=== PATIENT | female | born 1975 ===

== ENCOUNTER 2025-04-23 15:10 | Day surgery (SDC) | payer BC, SELFPAY ==
[2025-04-23] VITALS (15 sets, daily range): BP systolic 113–153; BP diastolic 64–91; BMI 29.9
[2025-04-23 10:48] LABS: Hematocrit 41.0 % (37.0-47.0); Hemoglobin 13.5 g/dL (12.0-16.0); Mean Corp Hgb Conc. 32.9 g/dL (33.0-37.0); Mean Corpuscular Volume 84.4 fL (81.0-99.0); Nucleated Red Blood Cells % 0 %; Platelet Count 189 10^3/uL (130-400); Red Cell Dist. Width 12.2 % (11.5-14.5)
[2025-04-23 11:04] LABS: ALT (SGPT) 25 U/L (0-35); AST (SGOT) 27 U/L (14-36); Albumin 5.0 g/dl (3.5-5.0); Alkaline Phosphatase 79 U/L (38-126); Blood Urea Nitrogen 16 mg/dl (7-17); Calcium 9.7 mg/dl (8.4-10.2); Carbon Dioxide 28 mmol/L (22-30); Chloride 104 mmol/L (98-107); Glucose 114 mg/dl (70-99); Lipase 249 U/L (23-300); Potassium 4.6 mmol/L (3.5-5.1); Sodium 140 mmol/L (135-145); Total Protein 8.1 g/dl (6.3-8.2); eGFR > 60.00
--- NOTE | 2025-04-23 12:31 | ED.GENMED ---
History of Present Illness
General
Chief Complaint: Abdominal Pain
Source: patient
Exam Limitations: none
Time Seen by Provider: 04/23/25 12:06
Nursing documentation reviewed up to this point in time: agreed with
History of Present Illness
History of Present Illness:
see MDM
Past History
Past History
ED Past Medical History: Hypothyroidism
Social History
Tobacco: Non-smoker
Alcohol: None
Drug: None
Personal:
Living: with family
Review of Systems
Review of Systems
Allergies reviewed?: Yes
All Other Systems: Not applicable
Phy Exam
Physical Exam
Physical Exam:
GENERAL: Alert , in no apparent distress
EYE: pupils equal and reactive
NECK: Supple
ENT: o/p clr, mmm.
CARDIAC: Regular rate and rhythm .
LUNGS: Clear breath sounds bilaterally, no acute respiratory distress, no wheezes/rales/rhonchi
ABDOMEN: Soft, without focal tenderness, no r/g, no cvat, normal bowel sounds
NEUROLOGICAL: Alert and oriented, no focal neuro deficits
SKIN: Warm and dry, skin intact.
MUSCULOSKELETAL: No edema, well perfused. neg parisa's sign
PSYCH: Normal and appropriate interaction.
Course
Orders/Labs/Results
Orders:
Orders
04/23/25 10:34
Complete Blood Count/With Diff Urgent
Comprehensive Metabolic Panel Urgent
Lipase Urgent
04/23/25 12:28
Electrocardiogram (*1) Urgent
Reason for Study: Abdominal Pain
CT Abd/Pel (IV only)-DH only Urgent
Comment:
Reason For Exam: diffuse abd pain
EKG- Treatment ONCE
Famotidine [Pepcid] 20 mg IV NOW STA
04/23/25 12:43
Troponin I Urgent
04/23/25 13:42
Piperacillin/Tazo 3.375 Gram [Zosyn] 3.375 gram in 50 ml IV NOW
04/23/25 14:11
Fentanyl Citrate/Pf [Sublimaze] 100 mcg .ROUTE .STK-MED ONE
Lidocaine HCl/Pf [Xylocaine-Mpf 1% Vial] 50 mg .ROUTE .STK-MED ONE
Midazolam HCl [Versed] 2 mg .ROUTE .STK-MED ONE
Propofol [Diprivan] 20 ml .ROUTE .STK-MED
Rocuronium Dahlgren [Rocuronium] 50 mg .ROUTE .STK-MED ONE
04/23/25 14:17
Bupivacaine 0.25%Pf/Epinephrin [Sensorcaine-Epi 0.25%-0.0005] 30 ml .ROUTE .STK-MED ONE
04/23/25 14:27
Fentanyl Citrate/Pf [Sublimaze] 25 mcg IV [id number] PRN
HYDROmorphone [Dilaudid] 0.25 mg IV PACU-Q5MPRN PRN
HYDROmorphone [Dilaudid] 0.5 mg IV PACU-Q5MPRN PRN
Ondansetron Injectable [Zofran] 4 mg IV PACU-ONCEPRN PRN
Prochlorperazine [Compazine] 5 mg IV PACU-ONCEPRN PRN
Notify MD As Directed
Notify physician if: for SDS patients with known or suspected sleep obstructive sleep apnea, monitor in the
PACU.
Notify MD for any apneic/desaturation episodes
O2 Therapy [RESP] Urgent
Titrate/Wean O2 to maintain O2 sat greater than (%): 92
Special Instructions: -Provide supplemental oxygen to achieve O2 sat of 92% or greater.
-After 15 min, may wean O2 and discontinue if patient is able to maintain O2 sat of 92%
or greater during recovery period.
If patient is a discharge home, without oxygen therapy, notify anestheiologist if
unable to maintain O2 SAT of 92% or greater on room air for MD clearance.
04/23/25 14:30
Normosol (Mult Electrolytes) [Normosol-R/Plasmalyte-A] 1,000 ml IV PER PROTOCOL
04/23/25 14:45
Normosol (Mult Electrolytes) [Normosol-R/Plasmalyte-A] 1,000 ml IV PER PROTOCOL
04/23/25 15:07
Dexamethasone Sod Phosphate [Decadron] 20 mg .ROUTE .STK-MED ONE
Ondansetron Injectable [Zofran] 4 mg .ROUTE .STK-MED ONE
04/23/25 15:19
HYDROmorphone [Dilaudid] 1 mg .ROUTE .STK-MED ONE
04/23/25 15:22
HYDROmorphone [Dilaudid] 0.25 mg IV PACU-Q5MPRN PRN
HYDROmorphone [Dilaudid] 0.5 mg IV PACU-Q5MPRN PRN
Ondansetron Injectable [Zofran] 4 mg IV PACU-ONCEPRN PRN
Prochlorperazine [Compazine] 5 mg IV PACU-ONCEPRN PRN
04/23/25 15:27
Acetaminophen 1000MG/100Ml [Ofirmev] 1,000 mg in 100 ml .ROUTE .STK-MED
04/23/25 15:43
Sugammadex Sodium [Bridion] 200 mg .ROUTE .STK-MED ONE
Abnormal Lab Results
04/23/25
10:34
WBC 12.1 H 10^3/uL
(4.8-10.8)
MCHC 32.9 L g/dL
(33.0-37.0)
Absolute Neuts (auto) 9.4 H 10^3/uL
(1.4-6.5)
Neutrophils % 78.0 H %
(42.2-75.2)
Lymphocytes % 16.1 L %
(20.5-51.1)
Glucose 114 H mg/dl
(70-99)
04/23/25 10:34
04/23/25 10:34
Vital Signs
Initial and Last Documented VS:
Initial Vital Signs
Temp Pulse Resp BP Pulse Ox
36.9 C 64 18 146/91 100
04/23/25 10:28 04/23/25 10:28 04/23/25 10:28 04/23/25 10:28 04/23/25 10:28
Last Documented Vital Signs
Temp Pulse Resp BP Pulse Ox
36.9 C 64 18 153/82 100
04/23/25 10:28 04/23/25 10:28 04/23/25 10:28 04/23/25 14:14 04/23/25 12:58
MDM/Problems Addressed
Differential Diagnosis Includes:
colitis, enteritis, cholelithiasis, gastritis, appendicitis
MDM/Problems Addressed:
50 y/o F hypothyroid
periumbilical abd pain since yesterday, anorexia, no fever, no vomiting
tender minimally periumbilical region
wbc 12
ct shows dilated appendix 1 cm with some surrounding inflammation, no perf
d/w dr. briggs who will see her in consult
zosyn ordered
pt declines pain meds
pt taken to OR for lap appe
*Pulse Oximetry
SaO2: 100
Oxygen Mode of Delivery: Room air
Patient hypoxic: no (100)
*Critical Care Note
Total Time (30-74mins, 75-104mins- exclusive of procedures): Not Applicable
ED Attending Note
-
Portions of this chart may have been created with voice recognition software.� Occasional wrong word or��sound alike� substitutions may have occurred due to the inherent limitations of voice recognition software.
Discharge Plan
Departure
Patient Disposition: OR
Admit to: OR
Presentation/result/management discussed w/ accepting /DO: KAREN
Patient with high blood pressure during this ER visit?: No
Condition: Fair
Covid-19: Not Applicable
Discharge Problem:
Acute appendicitis
Interventions
Interventions:
*Risk Screen - Suicide Last Done: 04/23/25 10:28
*General Assessment Last Done: 04/23/25 10:28
*Neglect/Abuse Screening Last Done: 04/23/25 10:28
*ED- Fall Risk Assessment Last Done: 04/23/25 12:15
*ED COVID-19 Vaccine History Last Done: 04/23/25 12:15
*Nursing Disposition Last Done: 04/23/25 14:31
EO-Aejjno-Aiwujoyvbj Assessment Last Done: 04/23/25 12:16
Discharge Date and Time
Discharge Date/Time: 04/23/25 14:32
[2025-04-23] MEDS: PEPCID 20 MG IV (12:44)
[2025-04-23 13:12] LABS: Troponin I < 0.012 ng/ml
[2025-04-23] MEDS: ZOSYN 50 IV ×2 (13:55→19:32)
--- NOTE | 2025-04-23 14:27 | W.SUR.PREOP ---
Pre-Operative Surgical Note
-
I have examined this patient prior to the performance of the scheduled procedure.
The patient's condition is unchanged from the time of the current History and
Physical and the patient is able to undergo the scheduled procedure.
--- NOTE | 2025-04-23 14:27 | CON.GS ---
Medical History
-
Chief Complaint: Abdominal pain
History of Present Illness:
Patient is a 50 yo F with a PMH of obesity, hypothyroidism, and s/p x 3 who presents with 24 hours of RLQ abdominal pain. Ms. Britton states that her pain began yesterday acutely in the afternoon. Reports feeling well prior to this.
Describes a generalized abdominal discomfort which is localized to the RLQ. No nausea or vomiting. No fevers or chills. No fluctuations from a GI standpoint. No chronic GI issues. No prior colonoscopy.
Past Medical History
Past Medical History: Hypothyroidism and Other (Obesity)
Past Surgical History:
Social History
Tobacco: Non-Smoker
Alcohol: None
Drug: None
Family History
Family History: Reviewed & Not Pertinent
Allergies / Home Medications
Allergy/AdvReac Type Severity Reaction Status Date / Time
No Known Allergies Allergy Unverified 04/23/25 12:15
�Medication �Instructions �Recorded �Confirmed �Type
ibuprofen 400 mg tablet 400 mg PO Q6HPRN PRN MILD PAIN 04/23/25 04/23/25 History
levothyroxine 25 mcg tablet 25 mcg PO DAILY 04/23/25 04/23/25 History
(Synthroid)
Review of Systems
-
A 10 point review of systems was completed, and was negative except as per HPI.
Physical Exam
Vital Signs
Temp Pulse Resp BP Pulse Ox
98.4 F 64 18 153/82 100
04/23/25 10:28 04/23/25 10:28 04/23/25 10:28 04/23/25 14:14 04/23/25 12:58
04/22/25 04/23/25 04/24/25
06:59 06:59 06:59
Actual Weight 69.4 kg
Body Mass Index (BMI) 29.9
Lab Results
04/23/25 10:34
04/23/25 10:34
WBC 12.1 10^3/uL (4.8-10.8) H 04/23/25 10:34
Hgb 13.5 g/dL (12.0-16.0) 04/23/25 10:34
Hct 41.0 % (37.0-47.0) 04/23/25 10:34
Plt Count 189 10^3/uL (130-400) 04/23/25 10:34
Abs Immat Gran (auto) 0.0 10^3/uL (0-0.05) 04/23/25 10:34
Neutrophils % 78.0 % (42.2-75.2) H 04/23/25 10:34
Physical Exam
General: Well Developed, Well Nourished and No Apparent Distress
HEENT: Normocephalic and Anicteric
Respiratory: Non Labored Respirations
Cardiac: Regular Rhythm
GI: Soft, Non Distended, Tender (RLQ), Obese and Other (No diffuse peritonitis)
Musculoskeletal: No Edema
Skin: Warm and Dry
Neuro: Nonfocal/Grossly Intact
Data Reviewed
-
CT Scan: Image Personally Visualized and interpreted and Report Reviewed by me
Labs: Labs Reviewed by me
Assessment / Plan
-
Patient is a 50 yo F p/w acute appendicitis
The natural history and pathophysiology of appendicitis was discussed. Anatomy was reviewed. CT scan imaging as a relates to her appendix was reviewed. Options for management including medical management with antibiotics versus surgical
management with appendectomy were considered and discussed. The pros and cons of both approaches was discussed. Specifically, we discussed failure of medical management and future episodes of appendicitis versus surgical risks.
Plan for a laparoscopic appendectomy. The procedure itself, as well as the risks, benefits, and alternatives was discussed. Specifically, we discussed the risks of bleeding, infection, injury to surrounding structures (bowel, bladder), staple line
leak, and anesthetic complications. Typical postprocedure recovery was discussed. All questions answered. Consent signed.
-- Laparoscopic appendectomy
-- NPO, IVF
-- Antibiotics: Zosyn
[2025-04-23] MEDS: DILAUDID 0.25 MG IV (16:22)
--- NOTE | 2025-04-23 16:24 | W.IMMPOSTOP ---
Surgical Immed Post Op Note
-
Primary Surgeon: Saúl
Assisting Surgeon: None
Pre-op Diagnosis: Acute appendicitis
Post-op Diagnosis: Acute appendicitis
Procedure Performed: Laparoscopic appendectomy and lysis of adhesions
Anesthesia Type: General
Specimen / Cultures:
1. Appendix
Estimated Blood Loss: 3 cc
Complications: None
Operative Findings:
1. Omental adhesions along lower midline taken down
2. Appendix dilated and inflamed curled on itself, no perforation, no purulent or feculent contamination
3. Mesentery taken with Ligasure, base with mitchell load stapler
[2025-04-23] MEDS: NORMOSOL-R/PLASMALYTE-A 1000 IV (19:00)
[2025-04-23] MEDS: TYLENOL 650 MG PO (19:32)
--- NOTE | 2025-04-23 20:00 | PTCARENOTE ---
1845 Patient arrived on 2S from PACU s/p Laparoscopic appendectomy and lysis of adhesions- [place]. Lap sites KEIKO, intact. Abdomen is soft and non-distended. Active bowel sounds in all four quadrants. Urine output is adequate, voiding clear yellow
urine.
VSS, pain meets acceptable level. IVF infusing per order. PMH and medications reviewed by this RN and patient.
[2025-04-24] MEDS: TYLENOL 650 MG PO ×3 (00:39→08:58)
[2025-04-24] MEDS: ZOSYN 50 IV ×2 (01:01→08:58)
--- NOTE | 2025-04-24 02:17 | DOWNTIME ---
There was a [employer] Downtime on 04/24/2025 from 0100 to 04/24/2025 at 0215. Downtime documentation of patient's care, including medication administrations, has been reconciled in the electronic record per guidelines. Refer to the
patient's paper chart under the miscellaneous tab to see printed paper medication records and downtime forms.
[2025-04-24 03:15] VITALS: BP 119/71
--- NOTE | 2025-04-24 06:53 | W.PN.GS2 ---
Today's Communication / Plan
-
-- DC today
Assessment / Plan
-
Patient is a 50 yo F POD#1 s/p laparoscopic appendectomy
AVSS
Recovering well. OK for DC.
-- Regular diet
-- Pain control: Tylenol, Toradol, Oxycodone
-- HLIV
-- Home meds
-- DVT: Lovenox
-- DC today
Subjective Data
-
Date of Service: April 24, 2025
No major complaints. Pain well controlled. Tolerated clears, yet to have solid food, no nausea. Afebrile.
Objective Data
-
Intake and Output
04/22/25 04/23/25 04/24/25
06:59 06:59 06:59
Intake Total 1979
Balance 1979
Intake:
Oral fluids 480 / 480
IV fluids (Total) 1400 / 1400
Normosal 300 / 300
IV piggybacks 100 / 100
Other:
Number of approximated MODERATE 2
amounts of urine
Vital Signs
Temp Pulse Resp BP Pulse Ox
97.4 F 58 16 119/71 100
04/24/25 03:15 04/24/25 03:15 04/24/25 03:15 04/24/25 03:15 04/24/25 03:15
Lab Results
04/23/25 10:34
04/23/25 10:34
Calcium 9.7 mg/dl (8.4-10.2) 04/23/25 10:34
Total Bilirubin 0.5 mg/dl (0.2-1.3) 04/23/25 10:34
AST 27 U/L (14-36) 04/23/25 10:34
ALT 25 U/L (0-35) 04/23/25 10:34
Alkaline Phosphatase 79 U/L (38-126) 04/23/25 10:34
Total Protein 8.1 g/dl (6.3-8.2) 04/23/25 10:34
Albumin 5.0 g/dl (3.5-5.0) 04/23/25 10:34
Physical Exam
-
Gen: NAD
Abd: soft, mild tenderness, ND, non-peritoneal, incisions c/d/i - no erythema, ecchymosis or drainage
Patient has a low catheter: No
Patient has a central line: No
[2025-04-24 07:40] VITALS: BP 118/70
--- NOTE | 2025-04-24 09:47 | CM ---
CM reviewed medical. Patient is independent with needs. Active with her PCP.
PLAN: Home, no needs
[2025-04-24 10:45] VITALS: BP 113/76
== END 2025-04-24 10:58 | disposition home or self-care (01) ==
LOC: SDS 15:10
PROVIDERS: Physician Assistant; ATTENDING PHYSICIAN Surgery; EMERGENCY PHYSICIAN Emergency Medicine; FAMILY PHYSICIAN Family Medicine
DX: K35.80 Unspecified acute appendicitis (principal); K66.0 Peritoneal adhesions (postprocedural) (postinfection)
CPT/HCPCS: 44970; 74177; 80053; 83690; 84484; 85025; 88304; 93005; 96365; 96375; 99285; Q9967